=== PATIENT | female | born 1960 | race Caucasian/White ===

== ENCOUNTER 2018-10-08 10:22 | Inpatient (IN) | payer OTHER ==
[2018-10-08] MEDS: ONDANSETRON 4 MG INJ IV (12:31)
[2018-10-08] MEDS: morphine 2 MG INJ IV ×2 (12:31→20:10)
[2018-10-08] MEDS: DEXTROSE 5%-0.9% NACL 1,000 ML IV (12:37)
[2018-10-08] MEDS ORDERED: CEFTRIAXONE 1 GM INJ IVPB (14:00)
[2018-10-08] MEDS: ACETAMINOPHEN 325 MG TAB PO ×2 (14:44→22:17)
[2018-10-08] MEDS: CEFTRIAXONE 1 GM/NS 50 ML IVPB (15:00)
[2018-10-08] MEDS: KETOROLAC 30 MG INJ IV (18:08)
[2018-10-08] MEDS: DOCUSATE SODIUM 100 MG CAP PO (20:09)
[2018-10-08] MEDS: TAMSULOSIN (SR) 0.4 MG CAP PO (20:09)
[2018-10-09] MEDS: ONDANSETRON 4 MG INJ IV ×3 (00:37→20:25)
[2018-10-09] MEDS: SUMATRIPTAN 50 MG TAB PO (01:07)
[2018-10-09] MEDS: morphine 2 MG INJ IV ×3 (02:40→20:14)
[2018-10-09] MEDS: DEXTROSE 5%-0.9% NACL 1,000 ML IV ×3 (02:53→18:57)
[2018-10-09] MEDS: KETOROLAC 30 MG INJ IV ×2 (04:58→13:53)
[2018-10-09] MEDS: PANTOPRAZOLE 40 MG INJ IV (05:11)
[2018-10-09 07:36] LABS: ADD MAN DIFF? NO
[2018-10-09 07:38] LABS: BASOPHILS % 0.4 % (0.0-2.0); EOSINOPHILS # 0.1 10^3/ul (0.0-0.5); EOSINOPHILS % 1.3 % (0.0-7.0); HEMOGLOBIN 12.1 g/dl (12.0-16.0); LYMPHOCYTES % 19.6 % (15.0-51.0); MEAN CORPUSCULAR HEMOGLOBIN 28.7 pg (29.0-33.0); MEAN CORPUSCULAR HGB CONC 32.7 g/dl (32.0-37.0); MEAN CORPUSCULAR VOLUME 87.7 fl (82.0-101.0); MEAN PLATELET VOLUME 9.5 fl (7.4-10.4); MONOCYTE # 0.4 10^3/ul (0.3-0.9); MONOCYTES % 6.8 % (0.0-11.0); NEUTROPHIL # 3.8 10^3/ul (1.6-7.5); NEUTROPHILS % 71.5 % (39.0-77.0); PLATELET COUNT 319 10^3/UL (140-415); RED BLOOD COUNT 4.22 10^6/ul (4.20-5.40); RED CELL DISTRIBUTION WIDTH 14.1 % (11.5-14.5)
[2018-10-09 07:38] LABS: WHITE BLOOD COUNT 5.3 10^3/ul (4.8-10.8)
[2018-10-09 08:07] LABS: ALANINE AMINOTRANSFERASE 43 IU/L (13-69); ALBUMIN 3.3 g/dl (3.3-4.9); ALBUMIN/GLOBULIN RATIO 1.32; ALKALINE PHOSPHATASE 81 IU/L (42-121); ANION GAP 8 (5-13); ASPARTATE AMINO TRANSFERASE 49 IU/L (15-46); BILIRUBIN,INDIRECT 0.3 mg/dl (0-1.1); BILIRUBIN,TOTAL 0.3 mg/dl (0.2-1.3); BLOOD UREA NITROGEN 6 mg/dl (7-20); CALCIUM 8.4 mg/dl (8.4-10.2); CARBON DIOXIDE 26 mmol/L (21-31); CHLORIDE 107 mmol/L (97-110); Estimated GFR > 60 mL/min (>60); GLUCOSE 130 mg/dl (70-220); POTASSIUM 3.4 mmol/L (3.5-5.1); SODIUM 141 mmol/L (135-144); TOTAL PROTEIN 5.8 g/dl (6.1-8.1)
[2018-10-09] MEDS: DOCUSATE SODIUM 100 MG CAP PO ×2 (08:47→20:14)
[2018-10-09] MEDS: CEFTRIAXONE 1 GM/NS 50 ML IVPB (16:20)
[2018-10-09] MEDS: POTASSIUM CHLORIDE 100 ML IVPB ×2 (20:14→21:30)
[2018-10-09] MEDS: TAMSULOSIN (SR) 0.4 MG CAP PO (20:14)
[2018-10-10] MEDS: POTASSIUM CHLORIDE (SR) 20 MEQ TAB PO (01:30)
[2018-10-10] MEDS: DEXTROSE 5%-0.9% NACL 1,000 ML IV ×2 (01:30→22:44)
[2018-10-10] MEDS: SUMATRIPTAN 50 MG TAB PO (01:32)
[2018-10-10] MEDS: morphine 2 MG INJ IV ×3 (01:46→22:41)
[2018-10-10] MEDS: ONDANSETRON 4 MG INJ IV ×3 (01:47→22:15)
[2018-10-10] MEDS: PANTOPRAZOLE 40 MG INJ IV (05:44)
[2018-10-10] MEDS ORDERED: DESFLURANE 15 MIN (07:00)
[2018-10-10] MEDS ORDERED: ROCURONIUM 50 MG INJ (07:00)
[2018-10-10] MEDS: DOCUSATE SODIUM 100 MG CAP PO ×2 (09:00→21:00)
[2018-10-10 12:00] LABS: INR 0.87; PROTIME 11.9 Sec (11.9-14.9); PT RATIO 0.9
[2018-10-10 12:01] LABS: PARTIAL THROMBOPLASTIN TIME 30.5 Sec (23.0-35.0)
[2018-10-10 12:08] LABS: ALANINE AMINOTRANSFERASE 62 IU/L (13-69); ALBUMIN 3.4 g/dl (3.3-4.9); ALBUMIN/GLOBULIN RATIO 1.36; ALKALINE PHOSPHATASE 81 IU/L (42-121); ANION GAP 7 (5-13); ASPARTATE AMINO TRANSFERASE 45 IU/L (15-46); BILIRUBIN,INDIRECT 0.2 mg/dl (0-1.1); BILIRUBIN,TOTAL 0.2 mg/dl (0.2-1.3); BLOOD UREA NITROGEN 6 mg/dl (7-20); CALCIUM 8.9 mg/dl (8.4-10.2); CARBON DIOXIDE 28 mmol/L (21-31); CHLORIDE 104 mmol/L (97-110); CREATININE 0.76 mg/dl (0.44-1.00); Estimated GFR > 60 mL/min (>60); GLUCOSE 123 mg/dl (70-220); POTASSIUM 4.1 mmol/L (3.5-5.1); SODIUM 139 mmol/L (135-144); TOTAL PROTEIN 5.9 g/dl (6.1-8.1)
[2018-10-10] MEDS: CEFTRIAXONE 1 GM/NS 50 ML IVPB (15:44)
[2018-10-10] MEDS ORDERED: MIDAZOLAM 1 MG/ML 2 ML INJ (19:27)
[2018-10-10] MEDS ORDERED: FENTAnyl 50 MCG/ML VIAL (19:28)
[2018-10-10] MEDS ORDERED: PROPOFOL 20 ML (19:28)
[2018-10-10] MEDS ORDERED: LIDOCAINE 2% (SDV) 5 ML INJ (19:28)
[2018-10-10] MEDS ORDERED: SUCCINYLCHOLINE CHLORIDE 100 MG/5 ML SYG IV (19:28)
[2018-10-10] MEDS ORDERED: PHENYLephrine (100 MCG/ML) 5ML SYG (20:17)
[2018-10-10] MEDS ORDERED: CEFAZOLIN 1 GM INJ (20:17)
[2018-10-10] MEDS ORDERED: NEOSTIGMINE 3 MG/3 ML SYRINGE (20:30)
[2018-10-10] MEDS ORDERED: GLYCOPYRROLATE 0.4 MG INJ (20:30)
[2018-10-11] MEDS: KETOROLAC 30 MG INJ IV ×2 (01:39→14:08)
[2018-10-11] MEDS: morphine 2 MG INJ IV ×2 (04:49→08:54)
[2018-10-11] MEDS: PANTOPRAZOLE 40 MG INJ IV (05:49)
[2018-10-11 05:53] LABS: ADD MAN DIFF? NO
[2018-10-11 06:01] LABS: BASOPHILS % 0.3 % (0.0-2.0); EOSINOPHILS # 0.1 10^3/ul (0.0-0.5); EOSINOPHILS % 1.2 % (0.0-7.0); HEMOGLOBIN 11.9 g/dl (12.0-16.0); LYMPHOCYTES # 2.2 10^3/ul (0.8-2.9); LYMPHOCYTES % 29.2 % (15.0-51.0); MEAN CORPUSCULAR HEMOGLOBIN 28.9 pg (29.0-33.0); MEAN CORPUSCULAR HGB CONC 33.1 g/dl (32.0-37.0); MEAN CORPUSCULAR VOLUME 87.4 fl (82.0-101.0); MONOCYTE # 0.7 10^3/ul (0.3-0.9); MONOCYTES % 8.9 % (0.0-11.0); NEUTROPHIL # 4.6 10^3/ul (1.6-7.5); NEUTROPHILS % 60.1 % (39.0-77.0); PLATELET COUNT 323 10^3/UL (140-415); RED BLOOD COUNT 4.12 10^6/ul (4.20-5.40); RED CELL DISTRIBUTION WIDTH 13.8 % (11.5-14.5)
[2018-10-11 06:01] LABS: WHITE BLOOD COUNT 7.6 10^3/ul (4.8-10.8)
[2018-10-11 07:27] LABS: ANION GAP 6 (5-13); BLOOD UREA NITROGEN 5 mg/dl (7-20); CALCIUM 8.9 mg/dl (8.4-10.2); CARBON DIOXIDE 31 mmol/L (21-31); CHLORIDE 102 mmol/L (97-110); CREATININE 0.64 mg/dl (0.44-1.00); Estimated GFR > 60 mL/min (>60); GLUCOSE 105 mg/dl (70-220); POTASSIUM 3.8 mmol/L (3.5-5.1); SODIUM 139 mmol/L (135-144)
[2018-10-11 07:43] LABS: MAGNESIUM 1.9 mg/dl (1.7-2.5)
[2018-10-11 07:43] LABS: PHOSPHORUS 3.1 mg/dl (2.5-4.9)
[2018-10-11] MEDS: DOCUSATE SODIUM 100 MG CAP PO ×2 (08:54→21:44)
[2018-10-11] MEDS: SUMATRIPTAN 50 MG TAB PO (08:57)
[2018-10-11] MEDS: ONDANSETRON 4 MG INJ IV (09:00)
[2018-10-11] MEDS: DEXTROSE 5%-0.9% NACL 1,000 ML IV (11:53)
[2018-10-11] MEDS ORDERED: HYDROmorphONE 0.5 MG/0.5 ML SYG IV (13:00)
[2018-10-11] MEDS: CEFTRIAXONE 1 GM/NS 50 ML IVPB (14:35)
[2018-10-11] MEDS: OXYCODONE/ACETAMINOPHEN (10/325) TAB PO ×2 (18:01→23:36)
[2018-10-12] MEDS: OXYCODONE/ACETAMINOPHEN (10/325) TAB PO ×2 (03:33→12:26)
[2018-10-12] MEDS: ONDANSETRON 4 MG TAB PO (03:50)
[2018-10-12] MEDS: PANTOPRAZOLE (EC) 40 MG TAB PO (06:18)
[2018-10-12] MEDS: DOCUSATE SODIUM 100 MG CAP PO (08:54)
[2018-10-12] MEDS: SUMATRIPTAN 50 MG TAB PO (08:54)
== END 2018-10-12 15:25 | disposition home or self-care (01) | DRG 661 ==
LOC: 5EC 10:22
PROC: 0TC78ZZ Extirpation of Matter from Left Ureter, Via Natural or Artificial Opening Endoscopic (ICD-10-PCS; principal; 2018-10-10 19:25)
PROC: 0T778DZ Dilation of Left Ureter with Intraluminal Device, Via Natural or Artificial Opening Endoscopic (ICD-10-PCS; 2018-10-10 19:25)
DX: N13.6 Pyonephrosis (principal); N17.9 Acute kidney failure, unspecified; R31.9 Hematuria, unspecified; Z87.442 Personal history of urinary calculi
CPT/HCPCS: 71045; 74018; 74176; 74430; 80048; 80053; 83735; 84100; 85025; 85610; 85730; 87086; 88300; 90686; 93005

== ENCOUNTER 2018-10-13 04:43 | Emergency (ER) | payer OTHER ==
[2018-10-13] MEDS: OXYCODONE/ACETAMINOPHEN (5/325) TAB PO (06:01)
== END 2018-10-13 06:48 | disposition home or self-care (01) ==
LOC: E/R 04:43
DX: N23 Unspecified renal colic (principal); N20.0 Calculus of kidney; Z96.0 Presence of urogenital implants; Z76.0 Encounter for issue of repeat prescription
CPT/HCPCS: 99283; Z7502